=== PATIENT | male | born 1985 ===

== ENCOUNTER 2017-06-30 09:27 | Emergency (ER) | payer OTHER ==
[2017-06-30 09:36] VITALS: BMI 36.0
[2017-06-30 09:38] VITALS: PULSE 99; RESP 20
--- NOTE | 2017-06-30 10:21 | ED PDOC ---
HPI: Eye Injury/Pain Time Seen by Provider: 06/30/17 10:04 Chief Complaint (Nursing): Eye Problem Chief Complaint (Provider): Eye Pain History Per: Patient History/Exam Limitations: no limitations Onset/Duration Of Symptoms: Days (today) Current Symptoms Are (Timing): Still Present Additional Complaint(s): Pt. with pain to the left eye this morning. Pt. denies any injury. No vision changes. No headaches, numbness, tingles, weakness. No neck pain. Had a corneal abrasion last time and feels the same. No cough. Able to move eyes with no issues. Past Medical History Reviewed: Nursing Documentation, Vital Signs Vital Signs: Last Vital Signs Temp 98.8 F 06/30/17 09:36 Pulse 99 H 06/30/17 09:36 Resp 20 06/30/17 09:36 BP 135/76 06/30/17 09:36 Pulse Ox 96 06/30/17 09:36 - Medical History PMH: Seizures Other PMH: corneal abrasion - Family History Family History: States: Unknown Family Hx - Social History Current smoker - smoking cessation education provided: No Alcohol: None Drugs: Denies - Immunization History Hx Tetanus Toxoid Vaccination: No Hx Influenza Vaccination: No Hx Pneumococcal Vaccination: No - Home Medications Home Medications: Ambulatory Orders Medication Instructions Recorded Amoxicillin 500 mg PO Q12 #20 cap 03/05/15 Levetiracetam [Keppra] 750 mg PO BID 03/05/15 Tobramycin [Tobrex] 5 ml TOP QID #1 bottle 04/23/16 - Allergies Allergies/Adverse Reactions: Allergies Allergy/AdvReac Type Severity Reaction Status Date / Time FISH Allergy RASH Verified 06/30/17 09:51 shellfish derived Allergy RASH Verified 06/30/17 09:51 Review of Systems Constitutional: Negative for: Fever, Weakness Eyes: Positive for: Pain. Negative for: Vision Change, Conjunctivae Inflammation, Eyelid Inflammation ENT: Negative for: Ear Pain, Ear Discharge, Nose Pain, Nose Congestion, Mouth Pain Cardiovascular: Negative for: Chest Pain Respiratory: Negative for: Cough, Shortness of Breath Gastrointestinal: Negative for: Nausea, Vomiting, Abdominal Pain Musculoskeletal: Negative for: Neck Pain Skin: Negative for: Rash Neurological: Negative for: Weakness Physical Exam - Reviewed Nursing Documentation Reviewed: Yes Vital Signs Reviewed: Yes - Physical Exam Appears: Positive for: Non-toxic, No Acute Distress Head Exam: Positive for: ATRAUMATIC, NORMAL INSPECTION, NORMOCEPHALIC Eye Exam: Positive for: EOMI, PERRL, Other (L eye with no foreign body under eyelids; L cornea with patch of fluorescein uptake at 6 o' clock; pain pain gone with numbing agent). Negative for: Nystagmus, Periorbital swelling, Periorbital tenderness ENT: Positive for: Normal ENT Inspection. Negative for: Nasal Congestion, Pharyngeal Erythema, Tonsillar Exudate Neck: Positive for: Normal, Supple Cardiovascular/Chest: Positive for: Regular Rate, Rhythm Respiratory: Positive for: Normal Breath Sounds Neurologic/Psych: Positive for: Alert, Oriented. Negative for: Motor/Sensory Deficits - ECG O2 Sat by Pulse Oximetry: 96 Pulse Ox Interpretation: Normal - Progress ED Course And Treament: 1023: Stable. AAOx3. Pain free. Spoke with Dr. Díaz. Will see pt. in office now. He will rx prescriptions as needed after evaluating pt. Disposition - Clinical Impression Clinical Impression: Corneal abrasion - Patient ED Disposition Is Patient to be Admitted: No Counseled Patient/Family Regarding: Diagnosis, Need For Followup - Disposition Referrals: [facility] [Outside] - 07/01/17 Caleb Díaz MD [Staff Provider] - Disposition: Routine/Home Disposition Time: 10:25 Condition: STABLE Additional Instructions: Go to Dr. Díaz's office without fail straight from here. You have to get further evaluation of your eye and he will give you prescriptions as needed. Return if not better in 3 days. Instructions: Corneal Abrasion (ED)
[2017-06-30 10:37] VITALS: BP 120/70; TEMP 98; O2SAT 98
== END 2017-06-30 10:38 | disposition home or self-care (01) ==
LOC: H.ER 09:27
DX: S05.02XA Injury of conjunctiva and corneal abrasion without foreign body, left eye, initial encounter (principal); Y92.89 Other specified places as the place of occurrence of the external cause